=== PATIENT | male | born 1970 | race Caucasian/White ===

== ENCOUNTER 2017-03-31 10:38 | Emergency (ER) | payer OTHER ==
[~2017-03-31] VITALS: Wt 117.5 kg
[~2017-03-31 10:38] MED LIST: ASPI-664 PO; ATOR80TA75 PO; CLOP75TA28 PO; IMDUR PO; METF500T4 PO; METO25TA4 PO; NIT4 SL
--- NOTE | 2017-03-31 12:37 | ERD ---
ER Documentation Chief Complaint Date/Time DATE: 03/31/17 TIME: 12:35 Chief Complaint ABCESS ON UPPER BACK X2 DAYS HPI 47-year-old male who presents emergency department for mid back abscess and swelling for 3 days. Denies headache, dizziness, blurred vision, neck pain, shoulder pain, chest pain , abdominal pain, nausea, vomiting, diarrhea, constipation, urinary symptoms, recent travel, difficulty breathing while lying flat, recent exposure to any illness, recent antibiotic use in the last 3 months, fever, chills, numbness or tingling sensation, loss of bowel and bladder control, trauma. No known drug allergies. Past medical history of diabetes, hypertension, acute myocardial infarction. Surgical history of 3 stent placement secondary to acute myocardial infarction. Medication: Plavix, metoprolol, isosorbide, aspirin, metformin. 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 Occasionally smokes cigarettes. Occasional drinks alcoholic beverages per day. Denies use of illegal drugs. ROS All systems reviewed and are negative except as per history of present illness. Medications Home Meds Active Scripts Cephalexin* (Keflex*) 500 Mg Capsule, 500 MG PO QID for 5 Days, CAP Prov:CRISTIANARICHIECARLITOS 03/31/17 Hydrocodone/Acetaminophen ([place] 10-325 Tablet) 1 Each Tablet, 1 EACH PO Q4 Y for PAIN, #14 TAB Prov:CARLITOS CAICEDO 03/31/17 Sulfamethoxazole/Trimethoprim* (Bactrim Ds* Tablet) 1 Each Tablet, 1 TAB PO BID for 7 Days, TAB Prov:CARLITOS CAICEDO 03/31/17 Metoprolol Tartrate* (Lopressor*) 25 Mg Tablet, 25 MG PO BID, #90 TAB Prov:RITCHIE DO 07/11/16 [Imdur] No Conflict Check, 30 MG PO DAILY, #90 Prov:RITCHIE DO 07/11/16 Nitroglycerin* (Nitrostat*) 0.4 Mg Tab.subl, 1 TAB SL Q5M Y for ANGINA, #90 Prov:RITCHIE DO 07/11/16 Clopidogrel Bisulfate (Clopidogrel) 75 Mg Tablet, 75 MG PO DAILY, #90 TAB Prov:RITCHIE DO 07/11/16 Atorvastatin* (Atorvastatin*) 80 Mg Tablet, 80 MG PO DAILY@21, #90 TAB Prov:RITCHIE DO 07/11/16 Aspirin* (Aspirin* EC) 81 Mg Tablet., 81 MG PO DAILY, #90 Prov:RITCHIE DO 07/11/16 Reported Medications Metformin* (Glucophage*) Unknown Strength Tab, PO BID, #60 TAB 07/09/16 Allergies Allergies: Coded Allergies: No Known Allergy (Unverified , 03/31/17) PMhx/Soc History of Surgery: Yes (GALLBLADDER REMOVED) Anesthesia Reaction: No Hx Neurological Disorder: No Hx Respiratory Disorders: No Hx Cardiac Disorders: Yes (HTN) Hx Psychiatric Problems: No Hx Miscellaneous Medical Probl: No Hx Alcohol Use: Yes Hx Substance Use: No Hx Tobacco Use: Yes (1PK A DAY) Smoking Status: Current every day smoker Physical Exam Vitals Vital Signs Date Time Temp Pulse Resp B/P Pulse Ox O2 Delivery O2 Flow Rate FiO2 03/31/17 10:40 97.4 66 18 146/83 97 Physical Exam Const: [] Head: Atraumatic Eyes: Normal Conjunctiva ENT: Normal External Ears, Nose and Mouth. Neck: Full range of motion..~ No meningismus. Resp: Clear to auscultation bilaterally Cardio: Regular rate and rhythm, no murmurs Abd: Soft, non tender, non distended. Normal bowel sounds Skin: No petechiae or rashes. Has swelling and redness to the mid upper back measuring approximately 3-4 cm in diameter. No flatulence. Back: No midline or flank tenderness. C-spine/T-spine/L-spine are in midline with good and full range of motion and is no swelling/deformity. Ext: No cyanosis, or edema. No neurovascular deficits. Neur: Awake and alert Psych: Normal Mood and Affect Procedures/MDM Examination: Please see physical examination. Disease process, medical treatment was explained to the patient and family member. They verbalized understanding and agreed with the medical treatment, and follow-up care. Differential diagnosis: Mass versus abscess versus cellulitis Medical decision makin-year-old male who presents emergency department for mid back abscess and swelling for 3 days. Patient's complaint, patient's history about his complaint, my physical findings, my consultation with my supervising physician are consistent my final diagnosis of abscess that does not need or require incision and drainage at this time. I explained to the patient that this does not require incision and drainage at this time. Patient and family member agreed for me to prescribe antibiotic and pain medicine at this time. He also stated they will come back if his symptoms get worse. Medications prescribed are the following: Bactrim. Keflex. [place]. Patient and family member are made aware of the side effects and adverse reactions of the medications prescribed. Instructed on when to seek emergent and medical attention in case allergic/anaphylactic reactions or severe side effects and or adverse reactions to medications. Patient and family member verbalized understanding. Patient instructed Instructed to follow-up with his PCP in 24-48 hours. Instructed to Call 911 for chest pain, shortness of breath. Advised to come back here in ED as soon as possible for severity of symptoms which includes but not limited to: any new symptoms; shortness of breath/difficulty of breathing; cardiovascular changes; severe gastrointestinal symptoms; signs and symptoms of bleeding and or infection; signs of compartment syndrome/neurovascular changes; neurological changes/deficits. Patient and family member verbalized understanding. Upon discharge, patient is alert and oriented x 4, speaks full and clear sentences, denies pain, has no neurological deficits, has no neurovascular deficits, difficulty of breathing. Breathing even and unlabored. Lung sounds are clear to auscultation. Not in distress. Appears comfortable. Ambulatory with steady gait. Appears satisfied with care provided here in ED. Departure Diagnosis: Primary Impression: Abscess Condition: Stable Additional Instructions: Instructed to follow-up with his PCP in 24-48 hours. Instructed to Call 911 for chest pain, shortness of breath. Advised to come back here in ED as soon as possible for severity of symptoms which includes but not limited to: any new symptoms; shortness of breath/difficulty of breathing; cardiovascular changes; severe gastrointestinal symptoms; signs and symptoms of bleeding and or infection; signs of compartment syndrome/neurovascular changes; neurological changes/deficits. Patient and family member verbalized understanding. CARLITOS CAICEDO Mar 31, 2017 12:37 CARLITOS CAICEDO Mar 31, 2017 12:37
[2017-03-31] MEDS ORDERED: SULF1TAB31 PO (12:57)
[2017-03-31] MEDS ORDERED: HYDR-902 PO (12:58)
[2017-03-31] MEDS ORDERED: CEPH-443 PO (12:58)
== END 2017-03-31 13:26 | disposition home or self-care (01) ==
LOC: FTE 10:38
DX: L02.212 Cutaneous abscess of back [any part, except buttock and flank] (principal); I10 Essential (primary) hypertension; F17.210 Nicotine dependence, cigarettes, uncomplicated; E11.9 Type 2 diabetes mellitus without complications; Z79.82 Long term (current) use of aspirin; Z79.01 Long term (current) use of anticoagulants
CPT/HCPCS: 99284

== ENCOUNTER 2017-09-13 12:28 | Inpatient (IN) | END 2017-09-15 14:10 | disposition home or self-care (01) | DRG 313 ==

== ENCOUNTER 2018-04-20 02:36 | Observation (INO) | END 2018-04-20 13:10 | disposition home or self-care (01) ==

== ENCOUNTER 2018-09-02 21:52 | Inpatient (IN) | payer OTHER ==
[~2018-09-02] VITALS: Ht 175.3 cm; Wt 114.8 kg
[~2018-09-02 21:52] MED LIST changes: +AMOX500C2 PO; -ASPI-664 PO; +ASPI81TA52 PO; +ATOR-2 PO; -ATOR80TA75 PO; +CLOP75TA27 PO; -CLOP75TA28 PO; +CYCL5TAB PO; +GLIP10TA14 PO; +IBUP-1545 PO; -IMDUR PO; +ISOS30TA67 PO; +METF500T24 PO; -METF500T4 PO; +METO-448 PO; -METO25TA4 PO; +NIT3 SL; -NIT4 SL; +PANT20TA3 PO; +ZINC220T PO
[2018-09-02 21:54] VITALS: Ht 175.3 cm; Wt 114.8 kg
[2018-09-03] MEDS ORDERED: morphine 4 MG/ML VIAL IV STA (02:16)
[2018-09-03] MEDS ORDERED: ZINC220T PO (02:36)
[2018-09-03] MEDS ORDERED: MTF1000T PO (02:36)
[2018-09-03] MEDS ORDERED: ATOR40TA68 PO (02:43)
[2018-09-03] MEDS ORDERED: morphine 10 MG INJ IV ONE (04:00)
--- NOTE | 2018-09-03 04:00 | ERD ---
ER Documentation Chief Complaint Chief Complaint epigastric pain since last nite; hx 3 cardiac stents HPI 48-year-old male with a history of CAD presenting with epigastric pain that started 1 day ago. The pain is constant, stabbing, 10 out of 10, radiating to the left flank, with no alleviating or exacerbating factors. He denies any associated fever, chills, nausea, vomiting, diarrhea, melena or hematochezia. No associated chest pain or shortness of breath. ROS All systems reviewed and are negative except as per history of present illness. Medications Home Meds Active Scripts Nitroglycerin* (Nitroglycerin* SL) 0.3 Mg Tab.subl, 0.3 MG SL Q5MIN PRN for CHEST PAIN, #60 BOTTLE 5 Refills Prov:LINNEA HANEY MD 04/20/18 Pantoprazole* (Pantoprazole*) 20 Mg Tablet.dr, 20 MG PO DAILY for 30 Days, #30 TAB Prov:LINNEA HANEY MD 04/20/18 Cyclobenzaprine Hcl* (Cyclobenzaprine Hcl*) 5 Mg Tablet, 5 MG PO Q8H PRN for PAIN, #20 TAB Prov:LINNEA HANEY MD 04/20/18 Isosorbide Mononitrate* (Isosorbide Mononitrate*) 30 Mg Tab.er.24h, 30 MG PO DAILY for 30 Days, #30 TAB 2 Refills Prov:IOANA GUERRA 09/15/17 Metoprolol Tartrate* (Lopressor*) 25 Mg Tab, 12.5 MG PO BID for 30 Days, #15 TAB 2 Refills Prov:IOANA GUERRA 09/15/17 Reported Medications Atorvastatin* (Atorvastatin*) 40 Mg Tablet, 40 MG PO QHS, #30 TAB 09/03/18 Zinc Sulfate* (Zinc Sulfate*) 220 Mg Tablet, 220 MG PO DAILY, TAB 09/03/18 Metformin* (Glucophage*) 1,000 Mg Tablet, 1000 MG PO BID, #60 TAB 09/03/18 Zinc Sulfate* (Zinc Sulfate*) 220 Mg Tablet, 220 MG PO DAILY, TAB 04/20/18 Amoxicillin* (Amoxicillin*) 500 Mg Cap, 500 MG PO Q8, #30 CAP 04/20/18 Atorvastatin* (Atorvastatin*) 80 Mg Tablet, 80 MG PO QHS, #30 TAB 04/20/18 Ibuprofen* (Ibuprofen*) 800 Mg Tab, 800 MG PO Q6H PRN for PAIN, TAB 04/20/18 Glipizide* (Glipizide*) 10 Mg Tablet, 10 MG PO BID, TAB 04/20/18 Aspirin (Low Dose Aspirin) 81 Mg Tablet.dr, 81 MG PO DAILY, #30 TAB 09/12/17 Clopidogrel Bisulfate (Clopidogrel) 75 Mg Tablet, 75 MG PO DAILY, #30 TAB 09/12/17 Discontinued Reported Medications Metformin Hcl* (Metformin Hcl*) 500 Mg Tablet, 500 MG PO WITH BREAKFAST DINNE, #30 TAB 09/12/17 Allergies Allergies: Coded Allergies: No Known Allergy (Unverified , 09/03/18) PMhx/Soc History of Surgery: Yes (CARDIAC STENT X3,S/P I AND D OF RIGHT GROIN ABSCESS) Anesthesia Reaction: No Hx Neurological Disorder: No Hx Respiratory Disorders: No Hx Cardiac Disorders: Yes (HX OF STENT X3) Hx Psychiatric Problems: No Hx Miscellaneous Medical Probl: No Hx Alcohol Use: Yes (OCCASSIONAL VODKA 2 SHOTS 2 DAYS AGO) Hx Substance Use: No Hx Tobacco Use: Yes (quit 04/2017) Smoking Status: Former smoker FmHx Family History: No diabetes Physical Exam Vitals Vital Signs Date Temp Pulse Resp B/P (MAP) Pulse Ox O2 O2 Flow FiO2 Time Delivery Rate 09/02/18 98.0 93 22 137/78 97 21:54 (97) Physical Exam Const: No acute distress Head: Atraumatic Eyes: Normal Conjunctiva ENT: Normal External Ears, Nose and Mouth. Neck: Full range of motion. No meningismus. Resp: Clear to auscultation bilaterally Cardio: Regular rate and rhythm, no murmurs Abd: Epigastric tenderness to palpation. No peritoneal signs. Normal bowel sounds Skin: No petechiae or rashes Back: No midline or flank tenderness Ext: No cyanosis, or edema Neur: Awake and alert Psych: Normal Mood and Affect Result Diagram: 09/03/1814009/03/18140 Results 24 hrs Laboratory Tests Test 09/03/18 01:41 09/03/18 02:36 White Blood Count 12.1 10^3/ul Red Blood Count 5.22 10^6/ul Hemoglobin 14.5 g/dl Hematocrit 44.4 % Mean Corpuscular Volume 85.1 fl Mean Corpuscular Hemoglobin 27.8 pg Mean Corpuscular Hemoglobin Concent 32.7 g/dl Red Cell Distribution Width 12.2 % Platelet Count 275 10^3/UL Mean Platelet Volume 11.0 fl Immature Granulocytes % 0.500 % Neutrophils % 67.4 % Lymphocytes % 23.4 % Monocytes % 8.3 % Eosinophils % 0.2 % Basophils % 0.2 % Nucleated Red Blood Cells % 0.0 /100WBC Immature Granulocytes # 0.060 10^3/ul Neutrophils # 8.2 10^3/ul Lymphocytes # 2.8 10^3/ul Monocytes # 1.0 10^3/ul Eosinophils # 0.0 10^3/ul Basophils # 0.0 10^3/ul Nucleated Red Blood Cells # 0.0 10^3/ul Sodium Level 137 mmol/L Potassium Level 4.1 mmol/L Chloride Level 97 mmol/L Carbon Dioxide Level 24 mmol/L Anion Gap 16 Blood Urea Nitrogen 12 mg/dl Creatinine 0.75 mg/dl Est Glomerular Filtrat Rate mL/min > 60 mL/min Glucose Level 323 mg/dl Calcium Level 9.5 mg/dl Total Bilirubin 0.5 mg/dl Direct Bilirubin 0.00 mg/dl Indirect Bilirubin 0.5 mg/dl Aspartate Amino Transf (AST/SGOT) 33 IU/L Alanine Aminotransferase (ALT/SGPT) 65 IU/L Alkaline Phosphatase 88 IU/L Troponin I < 0.012 ng/ml Total Protein 8.3 g/dl Albumin 4.6 g/dl Globulin 3.70 g/dl Albumin/Globulin Ratio 1.24 Lipase 943 U/L Bedside Glucose 279 mg/dL Current Medications Medications Dose Sig/Daniel Start Time Status Last (Trade) Ordered Route PRN Stop Time Admin Dose Reason Admin Morphine 4 mg ONCE STAT 09/03/18 DC 09/03/18 Sulfate IV 02:16 02:32 (morphine) 09/03/18 02:18 Morphine 6 mg ONCE ONCE 09/03/18 DC 09/03/18 Sulfate IV 04:00 03:42 (morphine) 09/03/18 04:01 Insulin 6 unit ONCE ONCE 09/03/18 Aspart SC 05:00 (Novolog 09/03/18 05:01 Insulin Pen) Procedures/MDM EMERGENT LABS AND DIAGNOSTIC STUDIES: Lab Results above were reviewed and interpreted by me. CBC: no anemia or evidence of infection CMP: No evidence of electrolyte abnormality, renal failure, hypoglycemia, liver failure, or biliary obstruction Lipase: Elevated, consistent with acute pancreatitis Troponin within normal limits, not indicative of cardiac ischemia 12-lead EKG was interpreted by Nicho Whalen MD: Normal Sinus Rhythm Normal axis Normal intervals Q waves present in inferior leads No acute ST or T wave changes suggestive of acute ischemia or STEMI. Radiology Results as interpreted by Radiology below were reviewed by Leilani Whalen MD: Chest x-ray shows no acute abnormalities CT abdomen and pelvis: IMPRESSION: 1. Probable mild acute pancreatitis superimposed on chronic pancreatitis. No definite focal peripancreatic fluid collection. 2. Hepatomegaly, 19.1 cm. Diffuse hepatic steatosis. Physician Anastasia Date Time Electronically viewed and signed by Claribel Branch Physician on 09/03/2018 04:43 Initial Nursing notes reviewed. Previous Medical Records requested via the Electronic Health Record. EMERGENCY DEPARTMENT COURSE / MEDICAL DECISION MAKING: Patient was initially treated with IV fluids and IV morphine for pain control. Differential includes but is not limited to biliary colic, biliary obstruction, acute cholecystitis, pancreatitis, hepatitis, lower lobe pneumonia, gastritis, colitis, cardiac pathology, aortic dissection, ureterolithiasis, pyelonephritis. Labs were ordered to evaluate for above and were remarkable for elevated lipase, otherwise normal. Chest Xray ordered to evaluate for pneumonia and was unrem arkable. CT of the abdomen/pelvis was ordered and showed evidence of acute pancreatitis Patient will be admitted for bowel rest, IV antibiotics, and pain control. Accepting Care Team: Current data and ongoing care discussed. Time: Time of admission Primary Provider: Dr. Jimenez Departure Diagnosis: Primary Impression: Acute pancreatitis Pancreatitis type: unspecified pancreatitis type Acute pancreatitis complication: unspecified Qualified Codes: K85.90 - Acute pancreatitis without necrosis or infection, unspecified Additional Impression: Hyperglycemia Condition: YOBANY Landaverde MD Sep 03, 2018 04:00
[2018-09-03] MEDS ORDERED: NS + KCL 20 MEQ 1,000 ML IV ONE (04:57)
[2018-09-03] MEDS ORDERED: NACL 0.9% 3 ML SYG IV SCH (05:00)
[2018-09-03] MEDS ORDERED: INSULIN ASPART [NOVOLOG] 3 ML PEN SC ONE (05:00)
[2018-09-03] MEDS ORDERED: morphine 2 MG INJ IV PRN (05:00)
[2018-09-03] MEDS ORDERED: SOD CHLORIDE 0.9% 1,000 ML IV ONE (05:00)
[2018-09-03] MEDS ORDERED: ACETAMINOPHEN 325 MG TAB PO PRN (05:00)
[2018-09-03] MEDS ORDERED: ONDANSETRON 4 MG INJ IV PRN ×2 (05:00)
[2018-09-03] MEDS ORDERED: GLUCOSE GEL 15 GRAM TUBE BUCCAL PRN (05:30)
[2018-09-03] MEDS ORDERED: GLUCAGON 1 MG INJ IM PRN (05:30)
[2018-09-03] MEDS ORDERED: DEXTROSE 50% 50 ML SYRINGE IV PRN ×2 (05:30)
[2018-09-03] MEDS ORDERED: GLUCOSE GEL 15 GRAM TUBE PO PRN ×2 (05:30)
[2018-09-03] MEDS ORDERED: INSULIN ASPART [NOVOLOG] 3 ML PEN SC SCH (06:00)
[2018-09-03] MEDS: Insulin NOVOLOG SS MILD Algorithm (NPO/TPN/ENTERAL FEEDS) SC SCH ×3 (06:00→17:37)
[2018-09-03 08:30] VITALS: BP 126/78; PULSE 73; RESP 18
[2018-09-03] MEDS: SOD CHLORIDE 0.9% 1,000 ML IV SCH ×2 (09:21→11:43)
[2018-09-03] MEDS: PANTOPRAZOLE 40 MG INJ IV SCH (09:39)
--- NOTE | 2018-09-03 12:19 | HP ---
Date/Time of Note Date/Time of Note DATE: 09/03/18 TIME: 12:13 Assessment/Plan VTE Prophylaxis Risk score (from [facility] [place])>0 risk: 2 SCD applied (from [facility]): Yes Pharmacological prophylaxis: NA/contraindicated Pharm contraindication: other (Acute pancreatitis still in the run the risk of developing retroperitoneal hematoma) Lines/Catheters IV C[facility]ter Type (from [facility]): Peripheral IV Urinary Cath still in place: No Assessment/Plan Problems: (1) Acute pancreatitis Status: Acute Comment: His lipase was closed with thousand. No evidence of biliary disease although we will go ahead and recheck to make sure we did not have a common bile duct stone. Please note that the labs are not consistent with that. We will treat him cautiously and conservatively with him being n.p.o. at this time. Qualifiers: Pancreatitis type: unspecified pancreatitis type Acute pancreatitis complication: unspecified Qualified Codes: K85.90 - Acute pancreatitis without necrosis or infection, unspecified (2) Diabetes mellitus type II, uncontrolled Status: Chronic Comment: Chronically poorly controlled. Given the pancreatitis this removes the therapeutic options of DPP 4 inhibitors and GLP-1 drugs. However we have multiple other options we need to bring his sugar under better control. For now however will be insulin as he is n.p.o. Qualifiers: Glycemic state: with hyperglycemia Qualified Codes: E11.65 - Type 2 diabetes mellitus with hyperglycemia (3) Hyperlipidemia Status: Chronic Comment: Maintain statin therapy. Qualifiers: Hyperlipidemia type: pure hypercholesterolemia Qualified Codes: E78.00 - Pure hypercholesterolemia, unspecified (4) Essential hypertension Status: Chronic Comment: Continue with ARASELI inhibitor and beta-heavenly as appropriate (5) Coronary artery disease Status: Chronic Comment: Fortunately quiescent Qualifiers: Coronary Disease-Associated Artery/Lesion type: [place] artery [place] vs. transplanted heart: [place] heart Associated angina: without angina Qualified Codes: I25.10 - Atherosclerotic heart disease of [place] coronary artery without angina pectoris (6) Gastro-esophageal reflux disease with esophagitis Status: Chronic Comment: Noted. Result Diagram: 09/03/18 0141 09/03/18 0141 Results 24hrs Laboratory Tests Test 09/03/18 01:41 09/03/18 02:36 09/03/18 05:16 09/03/18 08:11 White Blood Count 12.1 H Red Blood Count 5.22 Hemoglobin 14.5 Hematocrit 44.4 Mean Corpuscular 85.1 Volume Mean Corpuscular 27.8 L Hemoglobin Mean Corpuscular 32.7 Hemoglobin Concent Red Cell 12.2 Distribution Width Platelet Count 275 Mean Platelet Volume 11.0 H Immature 0.500 H Granulocytes % Neutrophils % 67.4 Lymphocytes % 23.4 Monocytes % 8.3 Eosinophils % 0.2 Basophils % 0.2 Nucleated Red Blood 0.0 Cells % Immature 0.060 H Granulocytes # Neutrophils # 8.2 H Lymphocytes # 2.8 Monocytes # 1.0 H Eosinophils # 0.0 Basophils # 0.0 Nucleated Red Blood 0.0 Cells # Sodium Level 137 Potassium Level 4.1 Chloride Level 97 Carbon Dioxide Level 24 Anion Gap 16 H Blood Urea Nitrogen 12 Creatinine 0.75 Est Glomerular > 60 Filtrat Rate mL/min Glucose Level 323 H Hemoglobin A1c 11.3 H Calcium Level 9.5 Total Bilirubin 0.5 Direct Bilirubin 0.00 Indirect Bilirubin 0.5 Aspartate Amino 33 Transf (AST/SGOT) Alanine 65 Aminotransferase (AL T/SGPT) Alkaline Phosphatase 88 Troponin I < 0.012 Total Protein 8.3 H Albumin 4.6 Globulin 3.70 H Albumin/Globulin 1.24 Ratio Triglycerides Level 98 Cholesterol Level 156 LDL Cholesterol, 92 Calculated HDL Cholesterol 44 Cholesterol/HDL 3.5 Ratio Lipase 943 H Bedside Glucose 279 H 280 H 229 H HPI/ROS Admit Date/Time Admit Date/Time Sep 03, 2018 at 04:58 Hx of Present Illness 48-year-old [place] male brought in with acute pancreatitis presenting with epigastric pain. While there are notes imply he has had alcohol recently he states his last drink was 2 weeks ago. He is unaware of any hypertriglyceridemia. He has no known prior history of biliary disease, and he has had his gallbladder out. Not had any jaundice or icterus. He reports he is on no new medications including no new diabetic medications and no DPP 4 inhibitors or GLP-1 drugs. Not had the recent addition of thiazide diuretics. ROS Not an excellent historian but does speak Persian well Constitutional: no complaints (Eyes fevers chills or sweats) Eyes: no complaints ENT: no complaints Respiratory: no complaints Cardiovascular: no complaints (No symptoms suggestive of his prior cardiac disease) Gastrointestinal: pain, nausea (Pain with nausea no vomiting no constipation no melena no bright red blood per rectum) Genitourinary: no complaints Musculoskeletal: no complaints Skin: no complaints Neurologic: no complaints Endocrine: polyuria, polydypsia, other (Reports his home blood glucose yonas millard has been best at 200 and frequently higher) PMH/Family/Social Past Medical History Medical History: coronary artery disease (Status post PCI with stenting x3), diabetes (Type 2 diabetes on no injectable therapy), gallstones (Status post cholecystectomy), GERD, high cholesterol, hypertension, pancreatitis (Acute pancreatitis first episode) Medications Current Medications Sodium Chloride 1,000 ml @ 175 mls/hr Q5H43M IV Last administered on 09/03/18at 09:21; Admin Dose 175 MLS/HR; Start 09/03/18 at 06:00 IV Flush (NS 3 ml) 3 ml PER PROTOCOL IV ; Start 09/03/18 at 05:00 Ondansetron HCl (Zofran Inj) 4 mg Q6H PRN IV NAUSEA/VOMITING; Start 09/03/18 at 05:00 Morphine Sulfate (morphine) 2 mg Q4H PRN IV .PAIN 7-10; Start 09/03/18 at 05:00 Pantoprazole (Protonix Iv) 40 mg DAILY@06 IV Last administered on 09/03/18at 09:39; Admin Dose 40 MG; Start 09/03/18 at 06:00 Diagnostic Test (Pha) (Accu-Chek) 1 ea 02 XX ; Start 09/04/18 at 02:00 Insulin Aspart (Novolog Insulin Pen) (Adult SC Insulin - Mild Algorithm)... Q6 SC ; Start 09/03/18 at 06:00 Miscellaneous Information 1 ea NOTE XX ; Start 09/03/18 at 05:30 Glucose (Glutose) 15 gm Q15M PRN PO DECREASED GLUCOSE; Start 09/03/18 at 05:30 Glucose (Glutose) 22.5 gm Q15M PRN PO DECREASED GLUCOSE; Start 09/03/18 at 05:30 Dextrose (D50w Syringe) 25 ml Q15M PRN IV DECREASED GLUCOSE; Start 09/03/18 at 05:30 Dextrose (D50w Syringe) 50 ml Q15M PRN IV DECREASED GLUCOSE; Start 09/03/18 at 05:30 Glucagon (Glucagen) 1 mg Q15M PRN IM DECREASED GLUCOSE; Start 09/03/18 at 05:30 Glucose (Glutose) 15 gm Q15M PRN BUCCAL DECREASED GLUCOSE; Start 09/03/18 at 05:30 Coded Allergies: No Known Allergy (Unverified , 09/03/18) Past Surgical History Past Surgical Hx: cholecystectomy, other Family History Significant Family History: no pertinent family hx, diabetes, hypertension Social History Alcohol Use: rarely (Reports his last alcohol was 2 weeks ago and it is rare) Smoking Status: Former smoker Drug Use: none Exam/Review of Systems Vital Signs Vitals Vital Signs Date Temp Pulse Resp B/P (MAP) Pulse Ox O2 O2 Flow FiO2 Time Delivery Rate 09/03/18 97.7 73 18 126/78 96 Room Air 08:30 (94) Exam Constitutional: alert, oriented Head: normocephalic, atraumatic Eyes: nl conjunctiva, EOMI, nl sclera, PERRL ENMT: nl external ears & nose, nl lips & teeth, nl nasal mucosa & septum, mucosa pink and moist Neck: supple, non-tender Respiratory: clear to auscultation, normal air movement Cardiovascular: regular rate and rhythm, nl pulses Gastrointestinal: soft, nl liver, spleen, non-tender Musculoskeletal: nl extremities to inspection Extremities: normal pulses Neurological: [employer] II-XII intact, nl mental status, nl speech, nl strength Skin: nl ARINA Holland MD Sep 03, 2018 12:19
[2018-09-03] MEDS: ACCU-CHEK XX SCH ×2 (13:27→20:05)
[2018-09-03 14:10] VITALS: BP 130/82; PULSE 64; RESP 18
[2018-09-03] MEDS: POTASSIUM CHLORIDE 20 MEQ in LACTATED RINGER'S 1,000 ML IV SCH ×2 (14:30→22:44)
[2018-09-03] MEDS ORDERED: NITROGLYCERIN (SL) 0.4 MG TAB SL PRN (14:30)
[2018-09-03] MEDS: INSULIN ASPART [NOVOLOG] 3 ML PEN SC SCH (17:35)
[2018-09-03 19:33] VITALS: BP 130/60; PULSE 62; RESP 17
[2018-09-03] MEDS: INSULIN GLARGINE [LANTus] (100 UNITS/ML) SYG SC SCH (20:57)
[2018-09-03] MEDS: metFORMIN 500 MG TAB PO SCH (21:00)
[2018-09-03] MEDS ORDERED: ATORVASTATIN 80 MG TAB PO SCH (21:00)
[2018-09-03] MEDS: METOPROLOL 25 MG TAB PO SCH (21:03)
[2018-09-04] MEDS: Insulin NOVOLOG SS MILD Algorithm (NPO/TPN/ENTERAL FEEDS) SC SCH ×4 (00:23→18:00)
[2018-09-04 01:57] VITALS: BP 111/78; PULSE 63; RESP 18
[2018-09-04] MEDS: ACCU-CHEK XX SCH ×4 (02:00→20:05)
[2018-09-04] MEDS ORDERED: ACCU-CHEK XX SCH (02:00)
[2018-09-04] MEDS: POTASSIUM CHLORIDE 20 MEQ in LACTATED RINGER'S 1,000 ML IV SCH ×4 (03:28→23:40)
[2018-09-04] MEDS: PANTOPRAZOLE 40 MG INJ IV SCH (05:49)
[2018-09-04] MEDS: INSULIN ASPART [NOVOLOG] 3 ML PEN SC SCH ×3 (07:35→17:35)
[2018-09-04 07:46] VITALS: BP 137/78; PULSE 67; RESP 16
[2018-09-04] MEDS: metFORMIN 500 MG TAB PO SCH ×2 (08:43→20:42)
--- NOTE | 2018-09-04 08:43 | PN ---
Date/Time of Note Date/Time of Note DATE: 09/04/18 TIME: 08:35 Assessment/Plan VTE [place]axis [place] [facility] [place] risk: 2 [place] [facility] [place] Yes Pharmacological prophylaxis: heparin Lines/Catheters [facility] ([facility] Peripheral IV Urinary Cath still in place: No Assessment/Plan Problems: (1) Acute pancreatitis Status: Acute Comment: Improving slowly. Please note that she had the CT scan report states there may be a history of chronic pancreatitis. There is nothing in the patient's history consistent with this. Once this episode is settled down performing a stool for pancreatic elastase would be appropriate. Qualifiers: Pancreatitis type: unspecified pancreatitis type Acute pancreatitis complication: unspecified Qualified Codes: K85.90 - Acute pancreatitis without necrosis or infection, unspecified (2) Hyperlipidemia Status: Chronic Comment: Full dose statin therapy given the history of coronary artery disease Qualifiers: Hyperlipidemia type: pure hypercholesterolemia Qualified Codes: E78.00 - Pure hypercholesterolemia, unspecified (3) Diabetes mellitus type II, uncontrolled Status: Chronic Comment: This is coming under control nicely. Qualifiers: Glycemic state: with hyperglycemia Qualified Codes: E11.65 - Type 2 diabe luis carlos mellitus with hyperglycemia (4) Essential hypertension Status: Chronic Comment: Adequate control at this time (5) Steatosis of liver Status: Chronic Comment: Noted. Likely a consequence of the diabetes mellitus type 2 although he does consume alcohol on his quantification of this is not 100% clear to me. (6) Gastro-esophageal reflux disease with esophagitis Status: Chronic Comment: Noted and controlled (7) Coronary artery disease Status: Chronic Comment: Quiescent Qualifiers: Coronary Disease-Associated Artery/Lesion type: [place] artery [place] vs. transplanted heart: [place] heart Associated angina: without angina Qualified Codes: I25.10 - Atherosclerotic heart disease of [place] coronary artery without angina pectoris (8) H/O heart artery stent Status: Chronic Comment: Proximal LAD (9) History of heart artery stent Status: Chronic Comment: Distal LAD (10) Hx of heart artery stent Status: Chronic Comment: Circumflex (11) Hx of cholecystectomy Status: Chronic Comment: Stable Result Diagram: 09/04/185 09/04/185 Results 24hrs Laboratory Tests Test 09/03/18 12:14 09/03/18 17:33 09/03/18 20:54 09/04/18 00:21 Bedside Glucose 248 H 226 H 192 175 Test 09/04/18 04:45 09/04/18 05:52 White Blood Count 8.4 # Red Blood Count 4.71 Hemoglobin 13.1 L Hematocrit 41.1 L Mean Corpuscular 87.3 Volume Mean Corpuscular 27.8 L Hemoglobin Mean Corpuscular 31.9 L Hemoglobin Concent Red Cell 12.1 Distribution Width Platelet Count 221 Mean Platelet Volume 11.0 H Immature 0.500 H Granulocytes % Neutrophils % 66.3 Lymphocytes % 23.9 Monocytes % 7.4 Eosinophils % 1.5 Basophils % 0.4 Nucleated Red Blood 0.0 Cells % Immature 0.040 H Granulocytes # Neutrophils # 5.6 Lymphocytes # 2.0 Monocytes # 0.6 Eosinophils # 0.1 Basophils # 0.0 Nucleated Red Blood 0.0 Cells # Sodium Level 140 Potassium Level 4.1 Chloride Level 101 Carbon Dioxide Level 25 Anion Gap 14 H Blood Urea Nitrogen 10 Creatinine 0.71 Est Glomerular > 60 Filtrat Rate mL/min Glucose Level 189 # Calcium Level 9.1 Total Bilirubin 0.3 Direct Bilirubin 0.00 Indirect Bilirubin 0.3 Aspartate Amino 38 Transf (AST/SGOT) Alanine 53 Aminotransferase (AL T/SGPT) Alkaline Phosphatase 72 Total Protein 7.2 # Albumin 3.8 Globulin 3.40 H Albumin/Globulin 1.11 Ratio Amylase Level 79 Lipase 652 H Bedside Glucose 167 Subjective 24 Hr Interval Summary Free Text/Dictation Reports is happy that his sugars are better. He reports he is still having abdominal pain although it is a little bit improved. Constitutional: no complaints Eyes: no complaints Respiratory: no complaints Cardiovascular: no complaints Gastrointestinal: pain (epiGastric pain. Please note that he does state that he had pain in the past but that was treated with a proton pump inhibitor for a month) Genitourinary: no complaints Musculoskeletal: no complaints Endocrine: no complaints Exam/Review of Systems Exam Vitals Vital Signs Date Temp Pulse Resp B/P (MAP) Pulse Ox O2 O2 Flow FiO2 Time Delivery Rate 09/04/18 97.9 67 16 137/78 96 07:46 (97) 09/03/18 Room Air 14:10 Intake and Output 09/03/18 09/03/18 09/04/18 1515:00 23:00 07:00 IntakeIntake Total 525 ml 600 ml BalanceBalance 525 ml 600 ml Constitutional: alert, oriented Neck: supple, non-tender Respiratory: clear to auscultation, normal air movement Cardiovascular: regular rate and rhythm, nl pulses Gastrointestinal: soft, nl liver, spleen, non-tender Results Results 24hrs Laboratory Tests Test 09/03/18 12:14 09/03/18 17:33 09/03/18 20:54 09/04/18 00:21 Bedside Glucose 248 H 226 H 192 175 Test 09/04/18 04:45 09/04/18 05:52 White Blood Count 8.4 # Red Blood Count 4.71 Hemoglobin 13.1 L Hematocrit 41.1 L Mean Corpuscular 87.3 Volume Mean Corpuscular 27.8 L Hemoglobin Mean Corpuscular 31.9 L Hemoglobin Concent Red Cell 12.1 Distribution Width Platelet Count 221 Mean Platelet Volume 11.0 H Immature 0.500 H Granulocytes % Neutrophils % 66.3 Lymphocytes % 23.9 Monocytes % 7.4 Eosinophils % 1.5 Basophils % 0.4 Nucleated Red Blood 0.0 Cells % Immature 0.040 H Granulocytes # Neutrophils # 5.6 Lymphocytes # 2.0 Monocytes # 0.6 Eosinophils # 0.1 Basophils # 0.0 Nucleated Red Blood 0.0 Cells # Sodium Level 140 Potassium Level 4.1 Chloride Level 101 Carbon Dioxide Level 25 Anion Gap 14 H Blood Urea Nitrogen 10 Creatinine 0.71 Est Glomerular > 60 Filtrat Rate mL/min Glucose Level 189 # Calcium Level 9.1 Total Bilirubin 0.3 Direct Bilirubin 0.00 Indirect Bilirubin 0.3 Aspartate Amino 38 Transf (AST/SGOT) Alanine 53 Aminotransferase (AL T/SGPT) Alkaline Phosphatase 72 Total Protein 7.2 # Albumin 3.8 Globulin 3.40 H Albumin/Globulin 1.11 Ratio Amylase Level 79 Lipase 652 H Bedside Glucose 167 Medications Medication Current Medications IV Flush (NS 3 ml) 3 ml PER PROTOCOL IV ; Start 09/03/18 at 05:00 Ondansetron HCl (Zofran Inj) 4 mg Q6H PRN IV NAUSEA/VOMITING; Start 09/03/18 at 05:00 Morphine Sulfate (morphine) 2 mg Q4H PRN IV .PAIN 7-10; Start 09/03/18 at 05:00 Pantoprazole (Protonix Iv) 40 mg DAILY@06 IV Last administered on 09/04/18at 05:49; Admin Dose 40 MG; Start 09/03/18 at 06:00 Insulin Aspart (Novolog Insulin Pen) (Adult SC Insulin - Mild Algorithm)... Q6 SC Last administered on 09/04/18at 05:53; Admin Dose 1 UNIT; Start 09/03/18 at 06:00 Miscellaneous Information 1 ea NOTE XX ; Start 09/03/18 at 05:30 Glucose (Glutose) 15 gm Q15M PRN PO DECREASED GLUCOSE; Start 09/03/18 at 05:30 Glucose (Glutose) 22.5 gm Q15M PRN PO DECREASED GLUCOSE; Start 09/03/18 at 05:30 Dextrose (D50w Syringe) 25 ml Q15M PRN IV DECREASED GLUCOSE; Start 09/03/18 at 05:30 Dextrose (D50w Syringe) 50 ml Q15M PRN IV DECREASED GLUCOSE; Start 09/03/18 at 05:30 Glucagon (Glucagen) 1 mg Q15M PRN IM DECREASED GLUCOSE; Start 09/03/18 at 05:30 Glucose (Glutose) 15 gm Q15M PRN BUCCAL DECREASED GLUCOSE; Start 09/03/18 at 05:30 Potassium Chloride 20 meq/ Lactated Ringer's 1,010 ml @ 150 mls/hr Q6H44M IV Last administered on 09/03/18at 22:44; Admin Dose 150 MLS/HR; Start 09/03/18 at 14:00 Diagnostic Test (Pha) (Accu-Chek) 1 ea 02 XX ; Start 09/04/18 at 02:00 Diagnostic Test (Pha) (Accu-Chek) 1 ea 2 HOURS AFTER MEALS XX ; Start 09/03/18 at 14:00 Insulin Glargine (Lantus) 23 units DAILY@2000 SC Last administered on 09/03/18at 20:57; Admin Dose 23 UNITS; Start 09/03/18 at 20:00 Insulin Aspart (Novolog Insulin Pen) 8 unit WITH MEALS SC ; Start 09/03/18 at 17:35 Aspirin (Halfprin) 81 mg DAILY PO ; Start 09/04/18 at 09:00 Clopidogrel Bisulfate (plaVIX) 75 mg DAILY PO ; Start 09/04/18 at 09:00 Metformin HCl (Glucophage) 1,000 mg BID PO ; Start 09/03/18 at 21:00 Metoprolol Tartrate (Lopressor) 12.5 mg BID PO Last administered on 09/03/18at 21:03; Admin Dose 12.5 MG; Start 09/03/18 at 21:00 Nitroglycerin (Nitroglycerin (Sl Tab) 0.4 Mg) 1 tab Q5M PRN SL CHEST PAIN; Start 09/03/18 at 14:30 Atorvastatin Calcium (Lipitor) 40 mg QHS PO ; Start 09/04/18 at 21:00 ARINA FINK MD Sep 04, 2018 08:43
[2018-09-04] MEDS: METOPROLOL 25 MG TAB PO SCH ×2 (08:44→20:38)
[2018-09-04] MEDS: ASPIRIN (EC) 81 MG TAB PO SCH (08:45)
[2018-09-04] MEDS: CLOPIDOGREL 75 MG TAB PO SCH (08:45)
[2018-09-04 14:48] VITALS: BP 142/80; PULSE 62; RESP 16
[2018-09-04 20:00] VITALS: BP 157/83; PULSE 60; RESP 20
[2018-09-04] MEDS: ATORVASTATIN 40 MG TAB PO SCH (20:37)
[2018-09-04] MEDS: INSULIN GLARGINE [LANTus] (100 UNITS/ML) SYG SC SCH (20:41)
[2018-09-04] MEDS ORDERED: BENA10TA4 PO (21:59)
[2018-09-05] MEDS: POTASSIUM CHLORIDE 20 MEQ in LACTATED RINGER'S 1,000 ML IV SCH ×3 (00:34→22:12)
[2018-09-05] MEDS: ACCU-CHEK XX SCH ×4 (01:01→20:05)
[2018-09-05 02:00] VITALS: BP 151/79; PULSE 61; RESP 17
[2018-09-05] MEDS: PANTOPRAZOLE 40 MG INJ IV SCH (05:22)
[2018-09-05] MEDS: Insulin NOVOLOG SS MILD Algorithm (NPO/TPN/ENTERAL FEEDS) SC SCH ×4 (05:29→18:00)
[2018-09-05] MEDS: INSULIN ASPART [NOVOLOG] 3 ML PEN SC SCH ×4 (07:35→21:00)
[2018-09-05 08:02] VITALS: BP 142/81; PULSE 60; RESP 16
[2018-09-05] MEDS: CLOPIDOGREL 75 MG TAB PO SCH (08:15)
[2018-09-05] MEDS: ASPIRIN (EC) 81 MG TAB PO SCH (08:15)
[2018-09-05] MEDS: metFORMIN 500 MG TAB PO SCH ×2 (08:15→21:00)
[2018-09-05] MEDS: BENAZEPRIL 10 MG TAB PO SCH (08:16)
[2018-09-05] MEDS: METOPROLOL 25 MG TAB PO SCH ×2 (08:21→21:00)
--- NOTE | 2018-09-05 13:25 | PN ---
Date/Time of Note Date/Time of Note DATE: 09/05/18 TIME: 13:17 Assessment/Plan VTE Prophylaxis Risk score (from N[facility])>0 risk: 3 SCD applied (from [facility]): Yes Pharmacological prophylaxis: LMWH Lines/Catheters IV Catheter Type (from Nrsg): Peripheral IV Urinary Cath still in place: No Assessment/Plan Assessment/Plan 1. Acute pancreatitis, improving, start diet 2. DM, 3. Dyslipidemia, 4. HTN, 5. Obesity 6. Fatty liver 7. GERD, PPI 8. CAD, h/o PCI/stent, stable 9. h/o cholecystectomy Result Diagram: 09/05/1852009/05/18520 Results 24hrs Laboratory Tests Test 09/04/18 18:22 09/04/18 20:32 09/05/18 00:31 09/05/18 05:21 Bedside Glucose 125 120 106 White Blood Count 7.2 Red Blood Count 4.68 L Hemoglobin 13.0 L Hematocrit 40.5 L Mean Corpuscular 86.5 Volume Mean Corpuscular 27.8 L Hemoglobin Mean Corpuscular 32.1 Hemoglobin Concent Red Cell 12.0 Distribution Width Platelet Count 222 Mean Platelet Volume 11.2 H Immature 0.300 Granulocytes % Neutrophils % 64.1 Lymphocytes % 26.0 Monocytes % 7.5 Eosinophils % 1.7 Basophils % 0.4 Nucleated Red Blood 0.0 Cells % Immature 0.020 Granulocytes # Neutrophils # 4.6 Lymphocytes # 1.9 Monocytes # 0.5 Eosinophils # 0.1 Basophils # 0.0 Nucleated Red Blood 0.0 Cells # Sodium Level 139 Potassium Level 4.1 Chloride Level 100 Carbon Dioxide Level 24 Anion Gap 15 H Blood Urea Nitrogen 9 Creatinine 0.70 Est Glomerular > 60 Filtrat Rate mL/min Glucose Level 115 # Calcium Level 9.2 Amylase Level 53 Lipase 280 Test 09/05/18 05:25 09/05/18 08:02 09/05/18 10:08 09/05/18 11:42 Bedside Glucose 110 119 117 119 Subjective 24 Hr Interval Summary Free Text/Dictation mild epigastric pain, no nausea or vomiting Exam/Review of Systems Exam Vitals Vital Signs Date Temp Pulse Resp B/P (MAP) Pulse Ox O2 O2 Flow FiO2 Time Delivery Rate 09/05/18 97.5 60 16 142/81 100 08:02 (101) 09/03/18 Room Air 14:10 Intake and Output 09/04/18 09/04/18 09/05/18 1515:00 23:00 07:00 IntakeIntake Total 1010 ml 1010 ml 1660 ml BalanceBalance 1010 ml 1010 ml 1660 ml Constitutional: alert, oriented, well developed Psych: no complaints, nl mood/affect Head: normocephalic, atraumatic Eyes: nl conjunctiva, EOMI, nl lids, PERRL ENMT: nl external ears & nose, nl lips & teeth, nl nasal mucosa & septum, mucosa pink and moist Neck: supple, non-tender Respiratory: clear to auscultation, normal air movement; No congested cough, No crackles/rales, No diminished breath sounds, No intercostal retraction, No labored breathing, No respirations, No tactile fremitus, No wheezing, No other Cardiovascular: regular rate and rhythm, nl pulses; No bruits, No diastolic murmur, No edema, No gallop, No irregular rhythm, No jugular venous distention (JVD), No murmurs/extra sounds, No rub, No systolic murmur, No S3, No S4, No other Gastrointestinal: soft, nl liver, spleen, non-tender; No ascites, No bowel sounds, No distended, No firm, No hepatomegaly, No mass, No rebound or guarding, No splenomegaly, No surgical scars, No tender, No other Musculoskeletal: nl extremities to inspection Extremities: normal pulses; No calf tenderness, No cyanosis, No clubbing, No edema, No pitting pedal edema, No palpable cord, No tenderness, No other Neurological: PROCESSING ANALYST II-XII intact, nl mental status, nl speech, nl strength Skin: nl turgor Results Results 24hrs Laboratory Tests Test 09/04/18 18:22 09/04/18 20:32 09/05/18 00:31 09/05/18 05:21 Bedside Glucose 125 120 106 White Blood Count 7.2 Red Blood Count 4.68 L Hemoglobin 13.0 L Hematocrit 40.5 L Mean Corpuscular 86.5 Volume Mean Corpuscular 27.8 L Hemoglobin Mean Corpuscular 32.1 Hemoglobin Concent Red Cell 12.0 Distribution Width Platelet Count 222 Mean Platelet Volume 11.2 H Immature 0.300 Granulocytes % Neutrophils % 64.1 Lymphocytes % 26.0 Monocytes % 7.5 Eosinophils % 1.7 Basophils % 0.4 Nucleated Red Blood 0.0 Cells % Immature 0.020 Granulocytes # Neutrophils # 4.6 Lymphocytes # 1.9 Monocytes # 0.5 Eosinophils # 0.1 Basophils # 0.0 Nucleated Red Blood 0.0 Cells # Sodium Level 139 Potassium Level 4.1 Chloride Level 100 Carbon Dioxide Level 24 Anion Gap 15 H Blood Urea Nitrogen 9 Creatinine 0.70 Est Glomerular > 60 Filtrat Rate mL/min Glucose Level 115 # Calcium Level 9.2 Amylase Level 53 Lipase 280 Test 09/05/18 05:25 09/05/18 08:02 09/05/18 10:08 09/05/18 11:42 Bedside Glucose 110 119 117 119 Medications Medication Current Medications IV Flush (NS 3 ml) 3 ml PER PROTOCOL IV ; Start 09/03/18 at 05:00 Ondansetron HCl (Zofran Inj) 4 mg Q6H PRN IV NAUSEA/VOMITING; Start 09/03/18 at 05:00 Morphine Sulfate (morphine) 2 mg Q4H PRN IV .PAIN 7-10; Start 09/03/18 at 05:00 Pantoprazole (Protonix Iv) 40 mg DAILY@06 IV Last administered on 09/05/18at 05:22; Admin Dose 40 MG; Start 09/03/18 at 06:00 Insulin Aspart (Novolog Insulin Pen) (Adult SC Insulin - Mild Algorithm)... Q6 SC Last administered on 09/04/18at 13:09; Admin Dose 1 UNIT; Start 09/03/18 at 06:00 Miscellaneous Information 1 ea NOTE XX ; Start 09/03/18 at 05:30 Glucose (Glutose) 15 gm Q15M PRN PO DECREASED GLUCOSE; Start 09/03/18 at 05:30 Glucose (Glutose) 22.5 gm Q15M PRN PO DECREASED GLUCOSE; Start 09/03/18 at 05:30 Dextrose (D50w Syringe) 25 ml Q15M PRN IV DECREASED GLUCOSE; Start 09/03/18 at 05:30 Dextrose (D50w Syringe) 50 ml Q15M PRN IV DECREASED GLUCOSE; Start 09/03/18 at 05:30 Glucagon (Glucagen) 1 mg Q15M PRN IM DECREASED GLUCOSE; Start 09/03/18 at 05:30 Glucose (Glutose) 15 gm Q15M PRN BUCCAL DECREASED GLUCOSE; Start 09/03/18 at 05:30 Potassium Chloride 20 meq/ Lactated Ringer's 1,010 ml @ 150 mls/hr Q6H44M IV Last administered on 09/05/18 08:24; Admin Dose 150 MLS/HR; Start 09/03/18 at 14:00 Diagnostic Test (Pha) (Accu-Chek) 1 ea 02 XX ; Start 09/04/18 at 02:00 Diagnostic Test (Pha) (Accu-Chek) 1 ea 2 HOURS AFTER MEALS XX Last administered on 09/05/18 10:15; Admin Dose 1 EA; Start 09/03/18 at 14:00 Insulin Glargine (Lantus) 23 units DAILY@2000 SC Last administered on 09/04/18 20:41; Admin Dose 23 UNITS; Start 09/03/18 at 20:00 Insulin Aspart (Novolog Insulin Pen) 8 unit WITH MEALS SC ; Start 09/03/18 at 17:35 Aspirin (Halfprin) 81 mg DAILY PO Last administered on 09/05/18 08:15; Admin Dose 81 MG; Start 09/04/18 at 09:00 Clopidogrel Bisulfate (plaVIX) 75 mg DAILY PO Last administered on 09/05/18 08:15; Admin Dose 75 MG; Start 09/04/18 at 09:00 Metformin HCl (Glucophage) 1,000 mg BID PO ; Start 09/03/18 at 21:00 Metoprolol Tartrate (Lopressor) 12.5 mg BID PO Last administered on 09/05/18 08:21; Admin Dose 12.5 MG; Start 09/03/18 at 21:00 Nitroglycerin (Nitroglycerin (Sl Tab) 0.4 Mg) 1 tab Q5M PRN SL CHEST PAIN; Start 09/03/18 at 14:30 Atorvastatin Calcium (Lipitor) 40 mg QHS PO Last administered on 09/04/18 20:37; Admin Dose 40 MG; Start 09/04/18 at 21:00 Benazepril HCl (Lotensin) 10 mg DAILY PO Last administered on 09/05/18 08:16; Admin Dose 10 MG; Start 09/05/18 at 09:00 GURINDER DE JESUS MD Sep 05, 2018 13:25
[2018-09-05 14:21] VITALS: BP 151/79; PULSE 60; RESP 16
[2018-09-05] MEDS: INSULIN GLARGINE [LANTus] (100 UNITS/ML) SYG SC SCH (20:00)
[2018-09-05 20:21] VITALS: BP 107/61; PULSE 59; RESP 18
[2018-09-05] MEDS ORDERED: INSULIN ASPART [NOVOLOG] 3 ML PEN SC SCH (21:00)
[2018-09-05] MEDS ORDERED: ACETAMINOPHEN 325 MG TAB PO PRN (21:05)
[2018-09-05] MEDS: ATORVASTATIN 40 MG TAB PO SCH (21:11)
[2018-09-05] MEDS ORDERED: INSULIN GLARGINE [LANTus] (100 UNITS/ML) SYG SC ONE (22:30)
[2018-09-06 01:44] VITALS: BP 96/64; PULSE 56; RESP 18
[2018-09-06] MEDS: ACCU-CHEK XX SCH ×3 (02:00→14:00)
[2018-09-06] MEDS ORDERED: PANTOPRAZOLE (EC) 40 MG TAB PO SCH (06:00)
[2018-09-06 07:18] VITALS: BP 136/71; PULSE 51; RESP 18
[2018-09-06] MEDS: INSULIN ASPART [NOVOLOG] 3 ML PEN SC SCH ×6 (08:00→17:24)
[2018-09-06] MEDS: CLOPIDOGREL 75 MG TAB PO SCH (08:16)
[2018-09-06] MEDS: ASPIRIN (EC) 81 MG TAB PO SCH (08:16)
[2018-09-06] MEDS: metFORMIN 500 MG TAB PO SCH ×2 (08:16→08:30)
[2018-09-06] MEDS: METOPROLOL 25 MG TAB PO SCH (08:22)
[2018-09-06] MEDS: BENAZEPRIL 10 MG TAB PO SCH (08:22)
[2018-09-06] MEDS ORDERED: ENOXAPARIN 40 MG/0.4 ML SYG SC SCH (09:00)
[2018-09-06] MEDS ORDERED: Insulin Glargine SC (11:16)
[2018-09-06] MEDS ORDERED: NOVO3I SC (11:16)
--- NOTE | 2018-09-06 11:26 | DS ---
Date/Time of Note Date/Time of Note DATE: 09/06/18 TIME: 11:19 Discharge Summary Admission/Discharge Info Admit Date/Time Sep 03, 2018 at 04:58 Discharge Date/Time Discharge Diagnosis 1. Acute pancreatitis, improved 2. DM, on metformin and insulins, follow up with PCP for adjustment 3. Dyslipidemia, on lipitor 4. HTN, controlled 5. Obesity, lose weight 6. Fatty liver, lose weight, low fat diet 7. GERD, PPI 8. CAD, h/o PCI/stent, stable 9. h/o cholecystectomy Patient Condition: Stable Hospital Course 48-year-old Persian male brought in with acute pancreatitis presenting with epigastric pain. While there are notes imply he has had alcohol recently he states his last drink was 2 weeks ago. He is unaware of any hypertrigly ceridemia. He has no known prior history of biliary disease, and he has had his gallbladder out. Not had any jaundice or icterus. He reports he is on no new medications including no new diabetic medications and no DPP 4 inhibitors or GLP-1 drugs. Not had the recent addition of thiazide diuretics. Lipase 943. CT scan with Probable mild acute pancreatitis superimposed on chronic pancreatitis. No definite focal peripancreatic fluid collection and hepatomegaly, 19.1 cm. Diffuse hepatic steatosis. TG 98. The etiology of acute pancreatitis is probably alcohol related. No evidence of biliary stone. Symptoms improved with NPO/IVF and pain control. Patient tolerates diet. He is instructed no alcohol and follow up with PCP in office. Patient has DM on metformin and glipizide. HbA1c is 11.3. Patient is put on lantus and premeal insulin. Blood glucose has been stable. Patient will follow up with PCP to adjust DM treatment. Home Meds Active Scripts [Insulin Glargine] 100 UNITS/ML SOLN No Conflict Check, 23 UNITS SC DAILY@1999 for 30 Days Prov:GURINDER DE JESUS MD 09/06/18 Insulin Aspart* (Novolog Insulin Pen*) 100 Unit/Ml Soln, 8 UNIT SC WITH MEALS for 30 Days Prov:GURINDER DE JESUS MD 09/06/18 Nitroglycerin* (Nitroglycerin* SL) 0.3 Mg Tab.subl, 0.3 MG SL Q5MIN PRN for CHEST PAIN, #60 BOTTLE 5 Refills Prov:LINNEA HANEY MD 04/20/18 Pantoprazole* (Pantoprazole*) 20 Mg Tablet.dr, 20 MG PO DAILY for 30 Days, #30 TAB Prov:LINNEA HANEY MD 04/20/18 Isosorbide Mononitrate* (Isosorbide Mononitrate*) 30 Mg Tab.er.24h, 30 MG PO DAILY for 30 Days, #30 TAB 2 Refills Prov:IOANA GUERRA 09/15/17 Metoprolol Tartrate* (Lopressor*) 25 Mg Tab, 12.5 MG PO BID for 30 Days, #15 TAB 2 Refills Prov:IOANA GUERRA 09/15/17 Reported Medications Benazepril Hcl* (Benazepril Hcl*) 10 Mg Tablet, 10 MG PO DAILY, #30 TAB 09/04/18 Atorvastatin* (Atorvastatin*) 40 Mg Tablet, 40 MG PO QHS, #30 TAB 09/03/18 Zinc Sulfate* (Zinc Sulfate*) 220 Mg Tablet, 220 MG PO DAILY, TAB 09/03/18 Metformin* (Glucophage*) 1,000 Mg Tablet, 1000 MG PO BID, #60 TAB 09/03/18 Ibuprofen* (Ibuprofen*) 800 Mg Tab, 800 MG PO Q6H PRN for PAIN, TAB 04/20/18 Aspirin (Low Dose Aspirin) 81 Mg Tablet.dr, 81 MG PO DAILY, #30 TAB 09/12/17 Clopidogrel Bisulfate (Clopidogrel) 75 Mg Tablet, 75 MG PO DAILY, #30 TAB 09/12/17 Discontinued Reported Medications Zinc Sulfate* (Zinc Sulfate*) 220 Mg Tablet, 220 MG PO DAILY, TAB 04/20/18 Amoxicillin* (Amoxicillin*) 500 Mg Cap, 500 MG PO Q8, #30 CAP 04/20/18 Atorvastatin* (Atorvastatin*) 80 Mg Tablet, 80 MG PO QHS, #30 TAB 04/20/18 Glipizide* (Glipizide*) 10 Mg Tablet, 10 MG PO BID, TAB 04/20/18 Metformin Hcl* (Metformin Hcl*) 500 Mg Tablet, 500 MG PO WITH BREAKFAST DINNE, #30 TAB 09/12/17 Discontinued Scripts Cyclobenzaprine Hcl* (Cyclobenzaprine Hcl*) 5 Mg Tablet, 5 MG PO Q8H PRN for PAIN, #20 TAB Prov:LINNEA HANEY MD 04/20/18 Follow-up Plan PCP in one week Primary Care Provider Not On Staff Doctor Pending Labs Laboratory Tests Test 09/05/18 11:42 09/05/18 14:18 09/05/18 16:57 09/05/18 21:09 Bedside 119 142 104 99 Glucose mg/dL (70-220) mg/dL (70-220) mg/dL (70-220) mg/dL (70-220) Test 09/05/18 22:10 09/06/18 05:12 09/06/18 08:14 09/06/18 10:25 Bedside 135 132 160 Glucose mg/dL (70-220) mg/dL (70-220) mg/dL (70-220) Sodium Level 139 mmol/L (135-14 4) Potassium 3.8 Level mmol/L (3.5-5. 1) Chloride Level 103 mmol/L (97-110 ) Carbon Dioxide 26 Level mmol/L (21-31) Anion Gap 10 (5-13) Blood Urea 8 mg/dl (7-20) Nitrogen Creatinine 0.77 mg/dl (0.61-1. 24) Est Glomerular > 60 Filtrat mL/min (>60) Rate mL/min Glucose Level 122 mg/dl (70-220) Calcium Level 9.3 mg/dl (8.4-10. 2) Total 0.3 Bilirubin mg/dl (0.2-1.3 ) Direct 0.00 Bilirubin mg/dl (0.00-0. 20) Indirect 0.3 Bilirubin mg/dl (0-1.1) Aspartate Amino 51 Transf (AST/SGO IU/L (15-46) T) Alanine 57 Aminotransferas IU/L (13-69) e (ALT/SGPT) Alkaline 79 Phosphatase IU/L (42-121) Total Protein 6.7 g/dl (6.1-8.1) Albumin 3.7 g/dl (3.3-4.9) Globulin 3.00 g/dl (1.3-3.2) Albumin/Globuli 1.23 n Ratio GURINDER DE JESUS MD Sep 06, 2018 11:26
[2018-09-06 14:00] VITALS: BP 120/76; PULSE 73; RESP 18
== END 2018-09-06 17:59 | disposition home or self-care (01) | DRG 440 ==
LOC: E/R 21:52 → PP2 09-03 04:58 → 5EC 09-03 04:58 → UNDOADMIN 09-03 04:58 → CANRESERV 09-03 06:31
PROVIDERS: ADMIT Internal Medicine; ATTEND Internal Medicine
DX: K85.90 Acute pancreatitis without necrosis or infection, unspecified (principal); I25.10 Atherosclerotic heart disease of native coronary artery without angina pectoris; Z95.5 Presence of coronary angioplasty implant and graft; E11.65 Type 2 diabetes mellitus with hyperglycemia; E78.5 Hyperlipidemia, unspecified; I10 Essential (primary) hypertension; K21.0 Gastro-esophageal reflux disease with esophagitis; Z90.49 Acquired absence of other specified parts of digestive tract; K76.0 Fatty (change of) liver, not elsewhere classified; E66.9 Obesity, unspecified; Z68.37 Body mass index [BMI] 37.0-37.9, adult; Z79.82 Long term (current) use of aspirin; Z79.4 Long term (current) use of insulin
CPT/HCPCS: 36415; 71045; 74176; 80048; 80053; 80061; 82150; 82962; 83036; 83690; 84484; 85025; 93005; 96374; 96376; G0378; C9113; J1650; J1815; J2270; J3480; J7030; J7120

== ENCOUNTER 2018-09-22 19:22 | Emergency (ER) | payer SELFPAY ==
[~2018-09-22 19:22] MED LIST changes: -AMOX500C2 PO; -ATOR-2 PO; +ATOR40TA68 PO; +BENA10TA4 PO; -CYCL5TAB PO; -GLIP10TA14 PO; +Insulin Glargine SC; -METF500T24 PO; +MTF1000T PO; +NOVO3I SC
== END 2018-09-22 19:42 | disposition left against medical advice (07) ==
LOC: E/R 19:22
DX: Z53.21 Procedure and treatment not carried out due to patient leaving prior to being seen by health care provider (principal)

== ENCOUNTER 2019-01-28 01:55 | Emergency (ER) | payer OTHER ==
[~2019-01-28] VITALS: Ht 170.2 cm; Wt 115.9 kg
[2019-01-28 02:01] VITALS: Ht 170.2 cm; Wt 115.9 kg
[2019-01-28] MEDS ORDERED: SOD CHLORIDE 0.9% 1,000 ML IV STA (05:59)
[2019-01-28] MEDS ORDERED: ONDANSETRON 4 MG INJ IV STA ×2 (05:59→10:11)
[2019-01-28] MEDS ORDERED: morphine 4 MG/ML VIAL IV STA (05:59)
[2019-01-28] MEDS ORDERED: IOHEXOL 300MG/ML 150 ML BTL ONE (07:37)
[2019-01-28] MEDS ORDERED: SOD CHLORIDE 0.9% 100 ML ONE (07:37)
--- NOTE | 2019-01-28 08:02 | ERD ---
ER Documentation Chief Complaint Chief Complaint left upper abdominal pain x 2 days HPI This is a 48-year-old male who presents to the emergency department complaining of severe abdominal pain for the past 48 hours. The patient indicates that the pain is a sharp shooting pain. The pain has been intermittent. The pain is 10 out of 10 in intensity. The pain does not radiate to the back. Indicates the pain is worse after he eats or leans forward. The patient states he did not take any analgesic medication prior to arrival. He is a past medical history of insulin-dependent diabetes mellitus hypertension and 3 cardiac stents. He denies any chest pain or pressure at this time. He has no shortness of breath at rest or exertion. He denies any hemoptysis hematemesis or melanotic stools. Has had a history of pancreatitis in the past and indicates he only drinks on a social basis and has not consumed any alcohol use in the past several weeks. No hematuria. No frequency urgency or dysuria. No fevers or shaking no chills. ROS All systems reviewed and are negative except as per history of present illness. Medications Home Meds Active Scripts Hydrocodone/Acetaminophen ([place] 5-325 Tablet) 1 Each Tablet, 1 EACH PO Q6, #20 TAB Prov:MEMO CINTRON MD 01/28/19 Ondansetron (Ondansetron Odt) 4 Mg Tab.rapdis, 4 MG PO Q6H PRN for NAUSEA AND/OR VOMITING, #10 TAB Prov:MEMO CINTRON MD 01/28/19 Reported Medications Nitroglycerin* (Nitroglycerin* SL) 0.4 Mg Tab.subl, 0.4 MG SL Q5MIN PRN for CHEST PAIN, BOTTLE 01/28/19 Metoprolol Tartrate* (Lopressor*) 25 Mg Tab, 12.5 MG PO DAILY, #60 TAB 01/28/19 Isosorbide Mononitrate* (Isosorbide Mononitrate*) 30 Mg Tab.er.24h, 30 MG PO DAILY, TAB 01/28/19 Metformin Hcl* (Metformin Hcl*) 1,000 Mg Tablet, 1000 MG PO WITH BREAKFAST, #30 TAB 01/28/19 Insulin Aspart* (Novolog Insulin Pen*) 100 Unit/Ml Soln, 12 UNIT SC WITH MEALS, EA 01/28/19 Benazepril Hcl* (Benazepril Hcl*) 10 Mg Tablet, 10 MG PO DAILY, #30 TAB 01/28/19 Atorvastatin* (Atorvastatin*) 40 Mg Tablet, 40 MG PO QHS, #30 TAB 01/28/19 Aspirin* (Aspirin* EC) 81 Mg Tablet.dr, 81 MG PO DAILY, TAB 01/28/19 Insulin Glargine,Hum.rec.anlog (Basaglar Kwikpen U-100) 100 Unit/1 Ml Insuln.pen, 30 UNIT SC QHS, EA 01/28/19 Discontinued Reported Medications Benazepril Hcl* (Benazepril Hcl*) 10 Mg Tablet, 10 MG PO DAILY, #30 TAB 09/04/18 Atorvastatin* (Atorvastatin*) 40 Mg Tablet, 40 MG PO QHS, #30 TAB 09/03/18 Zinc Sulfate* (Zinc Sulfate*) 220 Mg Tablet, 220 MG PO DAILY, TAB 09/03/18 Metformin* (Glucophage*) 1,000 Mg Tablet, 1000 MG PO BID, #60 TAB 09/03/18 Ibuprofen* (Ibuprofen*) 800 Mg Tab, 800 MG PO Q6H PRN for PAIN, TAB 04/20/18 Aspirin (Low Dose Aspirin) 81 Mg Tablet.dr, 81 MG PO DAILY, #30 TAB 09/12/17 Clopidogrel Bisulfate (Clopidogrel) 75 Mg Tablet, 75 MG PO DAILY, #30 TAB 09/12/17 Discontinued Scripts [Insulin Glargine] 100 UNITS/ML SOLN No Conflict Check, 23 UNITS SC DAILY@2000 for 30 Days Prov:GURINDER DE JESUS MD 09/06/18 Insulin Aspart* (Novolog Insulin Pen*) 100 Unit/Ml Soln, 8 UNIT SC WITH MEALS for 30 Days Prov:GURINDER DE JESUS MD 09/06/18 Nitroglycerin* (Nitroglycerin* SL) 0.3 Mg Tab.subl, 0.3 MG SL Q5MIN PRN for CH EST PAIN, #60 BOTTLE 5 Refills Prov:LINNEA HANEY MD 04/20/18 Pantoprazole* (Pantoprazole*) 20 Mg Tablet.dr, 20 MG PO DAILY for 30 Days, #30 TAB Prov:LINNEA HANEY MD 04/20/18 Isosorbide Mononitrate* (Isosorbide Mononitrate*) 30 Mg Tab.er.24h, 30 MG PO DAILY for 30 Days, #30 TAB 2 Refills Prov:IOANA GUERRA 09/15/17 Metoprolol Tartrate* (Lopressor*) 25 Mg Tab, 12.5 MG PO BID for 30 Days, #15 TAB 2 Refills Prov:IOANA GUERRA 09/15/17 Allergies Allergies: Coded Allergies: No Known Allergy (Unverified , 01/28/19) PMhx/Soc History of Surgery: Yes (GALLBLADDER REMOVAL, PERISCROTAL ABSCESS REMOVAL, SACRUM SURGERY, STENT) Anesthesia Reaction: No (DENIES) Hx Neurological Disorder: No (DENIES) Hx Respiratory Disorders: No (DENIES) Hx Cardiac Disorders: Yes ([place] 2016, STENTS X3) Hx Psychiatric Problems: No (DENIES) Hx Miscellaneous Medical Probl: Yes ("PANCREAS PROBLEMS") Hx Alcohol Use: Yes (SOCIAL DRINKING) Hx Substance Use: No (DENIES) Hx Tobacco Use: Yes (QUIT MAR 2018) Smoking Status: Former smoker Physical Exam Vitals Vital Signs Date Temp Pulse Resp B/P (MAP) Pulse Ox O2 O2 Flow FiO2 Time Delivery Rate 01/28/19 98.2 65 16 138/88 97 Room Air 11:08 (105) 01/28/19 52 18 147/82 97 09:43 (103) 01/28/19 98.0 53 18 136/84 97 Room Air 06:30 (101) 01/28/19 97.2 67 18 147/82 97 02:01 (103) Physical Exam Constitutional:Well-developed. Well-nourished. HEENT:Normocephalic. Atraumatic.Pupils were equal round reactive to light. Moist mucous membranes.No tonsillar exudates. Neck: No nuchal rigidity. No lymphadenopathy. No posterior cervical spine tenderness or step-offs. Respiratory: Not using accessory muscles of respiration.Lungs were clear to auscultation bilaterally. No rhonchi. No rales. No wheezing. Cardiovascular: Regular rate regular rhythm.No murmurs. No rubs were appreciated.S1, S2 normal. Distal pulses are palpable 2+ bilaterally. GI: Abdomen was obese. Epigastric tenderness. Tenderness in the left upper quadrant and left lower quadrant. Non Distended. No pulsatile abdominal masses or bruits. No rebound. No guarding. Bowel sounds were hypoactive Muscle skeletal: Full range of motion of both the upper and lower extremities bilaterally.Normal muscle tone.No assymetrical calf tenderness or swelling. Skin: No petechia, no purpura. No lesions on the palms or the soles of the feet. No maculopapular rash. NEURO: Patient was alert, awake, orientated x3.No facial droop. Gait observed and normal with no ataxia.Speech had regular rate and rhythm. No focal neurological deficits. Result Diagram: 01/28/19 0626 01/28/19 0626 Results 24 hrs Laboratory Tests Test 01/28/19 06:26 White Blood Count 8.5 10^3/ul Red Blood Count 4.74 10^6/ul Hemoglobin 13.2 g/dl Hematocrit 42.6 % Mean Corpuscular Volume 89.9 fl Mean Corpuscular Hemoglobin 27.8 pg Mean Corpuscular Hemoglobin Concent 31.0 g/dl Red Cell Distribution Width 13.0 % Platelet Count 274 10^3/UL Mean Platelet Volume 10.8 fl Immature Granulocytes % 0.500 % Neutrophils % 58.4 % Lymphocytes % 32.0 % Monocytes % 7.3 % Eosinophils % 1.6 % Basophils % 0.2 % Nucleated Red Blood Cells % 0.0 /100WBC Immature Granulocytes # 0.040 10^3/ul Neutrophils # 5.0 10^3/ul Lymphocytes # 2.7 10^3/ul Monocytes # 0.6 10^3/ul Eosinophils # 0.1 10^3/ul Basophils # 0.0 10^3/ul Nucleated Red Blood Cells # 0.0 10^3/ul Prothrombin Time 13.1 Sec Prothrombin Time Ratio 1.0 INR International Normalized Ratio 0.98 Activated Partial Thromboplast Time 27.5 Sec Sodium Level 141 mmol/L Potassium Level 4.2 mmol/L Chloride Level 105 mmol/L Carbon Dioxide Level 25 mmol/L Anion Gap 11 Blood Urea Nitrogen 12 mg/dl Creatinine 0.77 mg/dl Est Glomerular Filtrat Rate mL/min > 60 mL/min Glucose Level 251 mg/dl Calcium Level 9.4 mg/dl Total Bilirubin 0.4 mg/dl Direct Bilirubin 0.00 mg/dl Indirect Bilirubin 0.4 mg/dl Aspartate Amino Transf (AST/SGOT) 25 IU/L Alanine Aminotransferase (ALT/SGPT) 42 IU/L Alkaline Phosphatase 77 IU/L Troponin I < 0.012 ng/ml Total Protein 7.9 g/dl Albumin 4.4 g/dl Globulin 3.50 g/dl Albumin/Globulin Ratio 1.25 Amylase Level 69 U/L Lipase 197 U/L Current Medications Medications Dose Sig/Daniel Start Time Status Last (Trade) Ordered Route PRN Stop Time Admin Dose Reason Admin Sodium 1,000 ml @ Q1H STAT 01/28/19 DC 01/28/19 Chloride 1,000 mls/hr IV 05:59 06:33 01/28/19 06:58 Morphine 4 mg ONCE STAT 01/28/19 DC 01/28/19 Sulfate IV 05:59 06:33 (morphine) 01/28/19 06:00 Ondansetron 4 mg ONCE STAT 01/28/19 DC 01/28/19 HCl (Zofran IV 05:59 06:33 Inj) 01/28/19 06:00 Iohexol 150 ml STK-MED 01/28/19 DC (Omnipaque ONCE .ROUTE 07:37 300mg/ ml) 01/28/19 07:38 Sodium 100 ml @ ud STK-MED 01/28/19 DC Chloride ONCE .ROUTE 07:37 01/28/19 07:38 1 mg ONCE STAT 01/28/19 DC 01/28/19 Hydromorphone IV 10:11 10:24 HCl 01/28/19 10:12 (Dilaudid) Ondansetron 4 mg ONCE STAT 01/28/19 DC 01/28/19 HCl (Zofran IV 10:11 10:24 Inj) 01/28/19 10:12 Procedures/MDM This patient presented to the emergency department with abdominal pain and was seen and evaluated by myself. My differential diagnosis included but was not limited to abdominal aortic aneurysm, appendicitis, pancreatitis, perforated peptic ulcer, perforated viscus, Boerhaaves syndrome or visceral pain such as diverticulitis, DKA, esophagitis, hepatitis or bowel obstruction. The patient was placed on a cryptographer, continuous pulse oximetry, and IV access was established by nursing staff. The patient received intravenous morphine and Zofran for analgesic control. I obtained a 12-lead EKG tracing to rule out for atypical myocardial infarction. 12 Lead EKG tracing ordered and reviewed by myself showed: Normal sinus rhythm of 72 bpm and no arrhythmia. MI interval normal. QRS duration normal. No ST segment elevation No ST segment depression. No changes consistent with acute ischemia. I obtained a CT scan the patient's abdomen due to the severity of his symptoms and physical exam findings. This was reviewed by the radiologist and indicate the following: No evidence of urolithiasis, obstructive uropathy, diverticulitis or appendicitis. Single punctate calcification pancreatic duct. No phlegmon or pseudocyst. Findings are compatible with chronic pancreatitis. Enlarged fatty liver. Post cholecystectomy. The patient's pancreatic enzymes were within normal limits. The patient received IV analgesic medication. His pain is completely resolved. I did ind icate that I I felt the patient would benefit from being admitted for observation with the patient stated he has had multiple similar episodes of pain and felt comfortable being discharged home. The patient was discharged home in fair condition. They were instructed to return to the emergency department at any time if there was any worsening of their condition. The patient stated they would follow up with their PCP in the next 24-48 hours to initiate a suitable medication regimen under the care of their PCP as well as to allow their PCP to monitor any drug reactions. The patient was discharged home with prescriptions after they gave informed consent to the new medication. They were also fully informed by myself on the adverse effects and adverse drug interactions in order to provide adequate safeguards to prevent possible adverse reactions to medications. Departure Diagnosis: Primary Impression: Pancreatitis Chronicity: chronic Pancreatitis type: unspecified pancreatitis type Qualified Codes: K86.1 - Other chronic pancreatitis Additional Impression: Hyperglycemia without ketosis Condition: MEMO Pinto MD Jan 28, 2019 08:02
[2019-01-28] MEDS ORDERED: HYDROmorphONE 1 MG/ML SYG IV STA (10:11)
[2019-01-28] MEDS ORDERED: ASPI-817 PO (10:46)
[2019-01-28] MEDS ORDERED: ATOR40TA68 PO (10:46)
[2019-01-28] MEDS ORDERED: INSU100I33 SC (10:46)
[2019-01-28] MEDS ORDERED: NOVO3I SC (10:47)
[2019-01-28] MEDS ORDERED: BENA10TA4 PO (10:47)
[2019-01-28] MEDS ORDERED: METF100010 PO (10:48)
[2019-01-28] MEDS ORDERED: ISOS30TA67 PO (10:48)
[2019-01-28] MEDS ORDERED: METO-448 PO (10:49)
[2019-01-28] MEDS ORDERED: NITR0.4T32 SL (10:50)
[2019-01-28] MEDS ORDERED: ONDA4TAB14 PO (11:07)
[2019-01-28 11:08] VITALS: BP 138/88; PULSE 65; RESP 16
[2019-01-28] MEDS ORDERED: HYDR-4011 PO (11:08)
== END 2019-01-28 11:08 | disposition home or self-care (01) ==
LOC: E/R 01:55
DX: K86.1 Other chronic pancreatitis (principal); I10 Essential (primary) hypertension; E11.65 Type 2 diabetes mellitus with hyperglycemia; Z79.4 Long term (current) use of insulin; Z79.82 Long term (current) use of aspirin; Z98.61 Coronary angioplasty status; Z87.891 Personal history of nicotine dependence
CPT/HCPCS: 74177; 80053; 82150; 83690; 84484; 85025; 85610; 85730; 93005; 96374; 96375; 96376; J1170; J2270; J2405; J7030; Q9967; Z7502; Z7610